=== PATIENT | male | born 1950 | race Caucasian/White ===

== ENCOUNTER 2016-12-20 08:10 | Inpatient (IN) | payer MEDICARE, BC ==
[~2016-12-20] VITALS: Ht 166.4 cm; Wt 65.0 kg
[2016-12-20] MEDS ORDERED: MULT1TAB84 PO (08:29)
[2016-12-20] MEDS ORDERED: HYDR-3516 PO (08:29)
[2016-12-20] MEDS ORDERED: STOO100C PO (08:29)
[2016-12-20] MEDS ORDERED: ASPI-110 PO (08:29)
[2016-12-20] MEDS ORDERED: TRAM50TA PO (08:29)
[2016-12-27] MEDS: SODIUM CHLORIDE 0.9% IV SCH ×2 (08:15→10:30)
[2016-12-27] MEDS: TRANEXAMIC ACID IV SCH ×2 (08:15→10:30)
[2016-12-27] MEDS: EXPAREL PERI-ARTICULAR INJECTION (TOTAL VOL. 60 ML) P-ARTICULR SCH ×4 (08:15→11:09)
[2016-12-27] MEDS ORDERED: METOPROLOL TARTRATE 25 MG TAB PO PRN (08:15)
[2016-12-27] MEDS: CHLORHEXIDINE GLUCONATE 4% SOLN 120 ML BTL TOP SCH (08:15)
[2016-12-27] MEDS: SODIUM CHLORID 0.9% 500 ML IV SCH ×2 (08:15→19:57)
[2016-12-27] MEDS ORDERED: ceFAZolin 2 GM PREMIX 50 ML IV SCH (08:15)
[2016-12-27] MEDS: LACTATED RINGER'S 1000 ML IV SCH (08:15)
[2016-12-27] MEDS ORDERED: INSULIN HUMAN REGULAR 1,000 UNITS/10 ML VIAL SQ PRN (08:15)
[2016-12-27 08:16] VITALS: BP 149/83; PULSE 78; RESP 20; TEMP 97.7; O2SAT 98
[2016-12-27] MEDS ORDERED: DEXAMETHASONE SOD PHOS 4 MG/ML VIAL ONE (09:51)
[2016-12-27] MEDS ORDERED: MIDAZOLAM HCL 2 MG/2 ML VIAL ONE (09:51)
[2016-12-27] MEDS ORDERED: FAMOTIDINE 20 MG/2 ML VIAL ONE (09:51)
[2016-12-27] MEDS ORDERED: GENTAMICIN SULFATE 80 MG/2 ML VIAL ONE (09:55)
[2016-12-27] MEDS ORDERED: ACETAMINOPHEN 1000 MG/100 ML VIAL IV ONE (09:56)
[2016-12-27] MEDS ORDERED: fentaNYL CITRATE 250 MCG/5 ML AMP ONE (09:56)
[2016-12-27] MEDS ORDERED: BISACODYL 10 MG SUPP PR PRN (10:15)
[2016-12-27] MEDS ORDERED: Post-op Orders (for Pharmacy) MISC XX ONE (10:15)
[2016-12-27] MEDS ORDERED: ONDANSETRON HCL 4 MG/2 ML VIAL IVP PRN (10:15)
[2016-12-27] MEDS ORDERED: ZOLPIDEM TARTRATE 5 MG TAB PO PRN (10:15)
[2016-12-27] MEDS ORDERED: TRANEXAMIC ACID INJ 0 MG in SODIUM CHLORIDE 0.9% INJ 100 ML IV SCH (10:15)
[2016-12-27] MEDS ORDERED: SODIUM CHLORIDE 0.9% FLUSH 5 ML FLUSH IVF PRN (10:15)
[2016-12-27] MEDS ORDERED: MAGNESIUM HYDROXIDE SUSP 30 ML CUP PO PRN (10:15)
[2016-12-27] MEDS ORDERED: MORPHINE SULFATE 8 MG/ML INJ IV PUSH PRN (10:15)
[2016-12-27] MEDS ORDERED: SODIUM CHLORIDE 0.9% IV SCH (11:15)
[2016-12-27] MEDS ORDERED: TRANEXAMIC ACID IV SCH (11:15)
[2016-12-27] MEDS ORDERED: NEOSTIGMINE 3 MG/3 ML SYR IV ONE (12:00)
[2016-12-27] MEDS ORDERED: ePHEDrine/NS 25 MG/5 ML SYR IV ONE (12:00)
[2016-12-27] MEDS ORDERED: PHENYLEPH/NS 1000 MCG/10 ML SYR IV ONE (12:00)
[2016-12-27] MEDS ORDERED: PROPOFOL 200 MG/20 ML AMP IV ONE (12:00)
[2016-12-27] MEDS ORDERED: ONDANSETRON HCL 4 MG/2 ML VIAL IV PUSH ONE (12:00)
[2016-12-27] MEDS: ASPIRIN EC 81 MG TABEC PO SCH ×2 (12:00→19:47)
[2016-12-27] MEDS ORDERED: LACTATED RINGER'S 1000 ML INJ 1,000 ML IV ONE (12:00)
[2016-12-27] MEDS ORDERED: DO NOT ADM ANY ANTICOAGULANT DRUGS XX PRN (13:00)
[2016-12-27] MEDS: LACTATED RINGER'S 1000 ML INJ 1,000 ML IV SCH ×2 (13:00→19:56)
[2016-12-27] MEDS ORDERED: MORPHINE SULFATE 4 MG/ML INJ ONE (13:10)
--- NOTE | 2016-12-27 13:27 | MP ---
cc: Ting HART. DATE OF SURGERY 12/27/2016 PREOPERATIVE DIAGNOSIS Primary osteoarthritis right hip. POSTOPERATIVE DIAGNOSIS Primary osteoarthritis right hip. OPERATIVE PROCEDURE Right total hip arthroplasty with Rosalia prosthesis. SURGEON Shanae Hart MD UPHOLSTERY INSTRUCTOR RAJAT Carlin ANESTHESIA Spinal with supplemental general and local. INDICATIONS AND FINDINGS This 66-year-old man has had progressive worsening of pain in his right hip over the past year. This has worsened to the point that he can only walk about 1/2-mile on a good day because of his pain. He has had stiffness and pain on motion. He has especially pain on adduction. He has not responded to conservative measures including nonsteroidal anti-inflammatory agents, activity modification, analgesics, ambulatory aids and exercises. Physical findings shows limited range of motion in the right hip with tenderness in the hip on motion. Héctor's was positive. X-rays showed significant arthritis with loss of articular cartilage deep within the acetabulum, large osteophytes on the posterior and lateral aspect of the hip and osteophytes throughout. There are some small subchondral cysts. Operative findings showed significant changes in the hip with worse arthritis than seen on the x-rays with loss of articular cartilage in the upper part of the femoral head with irregularity in the acetabulum with loss of articular cartilage. In addition, there were osteophytes on both. PROSTHESIS USED Rosalia prosthesis with the acetabulum being a Tritanium Hemispherical Cluster Cup size 52 mm with two cancellous screws and a Trident X3 polyethylene insert, 32-mm inner diameter and 0 degrees. The femoral component was an Accolade II, size 5 x 132-degrees. Biolox Delta ceramic head, size 32 x +0 neck length. PROCEDURE The patient was brought to the clean-air operating suite and a spinal anesthetic administered. Because this was not entirely effective at the time, a general anesthetic was administered as well. He was placed into a lateral position on a [employer] lateral positioner. This was appropriately padded. He had an axillary roll under the left shoulder. He was then prepped with alcohol, Hibiclens and ChloraPrep and draped in the usual manner with the hip draped free. He received prophylactic antibiotics in the form of Ancef as well as tranexamic acid preoperatively according to protocol. An appropriate time-out procedure was carried out. Local anesthesia was administered into the incision site. A posterolateral incision was them made extending approximately 10 cm over the posterolateral aspect of the hip, centered over the tip of the greater trochanter. The incision was deepened through the subcutaneous tissues to the fascia micah and gluteus fascia which were incised in line with the fibers and the skin incision. A Charnley retractor was inserted with appropriate wound towels. The hip was internally rotated. The external rotators were released off the posterior aspect of the greater trochanter. A capsulotomy was carried out with posteriorly based flap reflecting the capsule off the joint. The hip was dislocated. The femoral neck was transected at the appropriate level with the oscillating saw. Femoral preparation was initiated with a box osteotome and rongeur followed by a canal-finding curet. The reaming of the femur was initiated with a size 0 broach and progressively went in one size increments up to size 5. At size 5 this seated appropriately. Calcar planing was carried out. The hip was then repositioned. Retractors were placed about the acetabulum. The soft tissues were cleaned from the acetabulum. Reaming was initiated starting with a 46-mm reamer and going in 1-mm increments up to size 51. At 51, an attempt at placement of the 52-mm trial prosthesis was unsuccessful, therefore the reaming went 52 mm. The trial prosthesis seated appropriately. When this was removed, the actual prosthesis which was a Tritanium Cluster Shell was impacted into place and seated appropriately. Secondary impaction was carried out with no change in position of the further impaction. Two of the dome holes were drilled and appropriate size screws were inserted. The liner was inserted. This was a 0-degree, 32-mm inner diameter liner. When this was inserted and seated, attention was directed to the femur again. A trial neck with a 32-mm trial heat and 0 neck length was positioned in place. With this reduced, there was excellent stability. There was excellent motion. There was no pistoning. The leg lengths appeared to be appropriate. The hip was dislocated. The femoral trial was removed. Local anesthesia was administered throughout the hip with Exparel. The medullary canal was irrigated. The femoral component was impacted into place and seated appropriately. A trial reduction was again carried out with the trial prosthesis with the same result. This trial prosthesis was removed. The trunnion was cleaned and dried. The Biolox Delta Ceramic Head was the positioned in place and impacted into position. When this seated appropriately, the hip was reduced. The hip was taken through a range of motion again. Stability was excellent. Range of motion was excellent. The leg lengths appeared appropriate. There was no pistoning. Capsular closure and external rotator reattachment was carried out with #1 Vicryl interrupted Phillip-Surjit sutures that were transosseous. After this closure, the sciatic nerve was again inspected and found to be in good condition. The fascia micah and gluteus fascia were repaired with #1 Vicryl interrupted [id number] sutures. The subcutaneous tissues were closed with 2-0 Vicryl interrupted simple sutures with buried knots. The skin was closed with continuous subcuticular closure of 4-0 Monocryl. The wounds were dressed with Steri-Strips, followed by dry dressing, sterile ABD and Medipore compression dressing. The leg was placed into a knee immobilizer. The patient was transferred to the recovery room in satisfactory condition having tolerated the procedure well. COUNTS Correct. SPECIMEN None. ESTIMATED BLOOD LOSS Less than 200 mL. MD MARGARITA Ward/KELECHI /12:46 PM /1:02 PM
--- NOTE | 2016-12-27 14:48 | RADRPT ---
EXAM DATE/TIME: 12/27/2016 13:40 [facility] COMPARISON: No previous studies available for comparison. INDICATIONS : Post-op total right hip arthroplasty. MEDICAL HISTORY : None. SURGICAL HISTORY : Inguinal hernia repair. ENCOUNTER: Initial ACUITY: 1 day PAIN SCORE: 0/10 LOCATION: Right hip. FINDINGS: The patient is status post a total hip arthroplasty with a bipolar prosthesis. Prosthesis is well-sea epi. Alignment is anatomic. A fracture is not appreciated. CONCLUSION: Anatomic alignment. Stephane De Jesus MD FACR Board Certified Radiologist. This report was verified electronically.
[2016-12-27 16:30] VITALS: BP 116/65; PULSE 101; RESP 16; TEMP 95.4; O2SAT 100
[2016-12-27 19:50] VITALS: BP 118/70; PULSE 107; RESP 18; TEMP 96.7; O2SAT 100
[2016-12-27] MEDS: oxyCODONE/ACETAMINOPHEN 5 MG/325 MG TAB PO PRN ×2 (19:55→23:51)
[2016-12-27] MEDS: SENNOSIDES 8.6 MG TAB PO SCH (19:56)
[2016-12-27] MEDS: MAGNESIUM HYDROXIDE SUSP 30 ML CUP PO SCH (19:56)
[2016-12-27] MEDS: SODIUM CHLORIDE 0.9% FLUSH 5 ML FLUSH IVF SCH (19:56)
[2016-12-27 23:50] VITALS: BP 112/69; PULSE 107; RESP 18; TEMP 96.7; O2SAT 100
[2016-12-28 03:50] VITALS: BP 120/68; PULSE 93; RESP 17; TEMP 97.5; O2SAT 98
[2016-12-28 06:03] LABS: MEAN CELL VOLUME 91.5 FL (80.0-100.0); MEAN CORPUSCULAR HEMOGLOBIN 31.6 PG (27.0-34.0); MEAN CORPUSCULAR HGB CONC 34.5 % (32.0-36.0); PLATELET COUNT 203 TH/MM3 (150-450); RED CELL DISTRIBUTION WIDTH 12.9 % (11.6-17.2); REVIEW FLAG FINAL
--- NOTE | 2016-12-28 06:16 | PD.ORT.PN ---
Subjective Post Op Day #: 1 Subjective Remarks He had some pain last night. He is better now. Distance Walked 50 feet. Objective Vitals Vital Signs Date Time Temp Pulse Resp B/P Pulse Ox O2 Delivery O2 Flow Rate FiO2 12/28/16 03:50 97.5 93 17 120/68 98 12/27/16 23:50 96.7 107 18 112/69 100 12/27/16 19:50 96.7 107 18 118/70 100 12/27/16 16:30 95.4 101 16 116/65 100 12/27/16 15:00 90 16 125/83 98 Nasal Cannula 2 12/27/16 14:30 84 16 142/84 99 Nasal Cannula 2 12/27/16 14:00 90 16 150/91 98 Nasal Cannula 2 12/27/16 13:45 82 16 138/84 98 Nasal Cannula 2 12/27/16 13:30 78 16 148/87 99 Nasal Cannula 2 12/27/16 13:15 78 16 137/85 99 Nasal Cannula 2 12/27/16 13:00 96.3 88 16 145/82 99 Nasal Cannula 2 12/27/16 08:16 97.7 78 20 149/83 98 I/O 12/27/16 12/27/16 12/27/16 12/28/16 12/28/16 12/28/16 07:00 15:00 23:00 07:00 15:00 23:00 Intake Total 100 ml 480 ml 240 ml Output Total 350 ml 200 ml 675 ml Balance -250 ml 280 ml -435 ml Intake Oral 480 ml 240 ml IV Total 100 ml Output Urine Total 350 ml 200 ml 675 ml # Bowel Movements 0 0 Result Diagram: 12/28/16 0514 Imaging Last 24 hours Impressions Hip X-Ray 12/27/16 1012 Signed Impressions: Service Date/Time: Tuesday, December 27, 2016 13:40 - CONCLUSION: Anatomic alignment. Stephane De Jesus MD Objective Remarks He is resting comfortably, supine in bed. The dressing is dry and intact. The neurovascular status is intact. Assessment & Plan Ortho Post Op Day #: 1 Problem List: (1) Status post total hip replacement, right Plan: Continue postop care and PT. Assessment and Plan Orthopaedically stable. Condition: Good. DVT prophylaxis: CARLOS stockings, sequentials, ASA. Discharge plans: Home with HHC. Has appointment. Usama Red MD (Charles) Dec 28, 2016 06:16
--- NOTE | 2016-12-28 06:18 | HHI.FF ---
Face to Face Verification Diagnosis: (1) Status post total hip replacement, right Physical Therapy Gait training Hip: Total hip, Protocol: Right, Posterior hip precautions, Progress to weight bearing Canvas Knee Splint: When in bed & 2 pillows btw thighs Right LE Weight Bearing: WB as tolerated Right LE Range of Motion: Active ROM Nursing Nursing: Dressing changes Dressing Changes: Daily dressing change, Coverderm/Primapore Additional Instructions Remove steristrips on postop day 14. I have seen patient Noah John on 12/28/16. My clinical findings support the need for the requested home health care services because: Ltd mobility - disease progression Limited ability to care for self High risk of falls I certify that my clinical findings support that this patient is homebound because: Post-op weakness Unsteady gait/balance Unsafe to leave home unassisted Usama Red MD (Charles) Dec 28, 2016 06:18
[2016-12-28 06:26] LABS: POTASSIUM 3.9 MEQ/L (3.5-5.1)
[2016-12-28] MEDS ORDERED: OXYC1TAB63 PO (06:39)
[2016-12-28 08:00] VITALS: BP 139/78; PULSE 93; RESP 18; TEMP 97.5; O2SAT 100
[2016-12-28] MEDS: MULTIVITAMINS/MINERALS THERAPEUTIC TAB PO SCH (08:08)
[2016-12-28] MEDS: oxyCODONE/ACETAMINOPHEN 5 MG/325 MG TAB PO PRN ×4 (08:09→21:21)
[2016-12-28] MEDS: MAGNESIUM HYDROXIDE SUSP 30 ML CUP PO SCH ×2 (08:09→20:44)
[2016-12-28] MEDS: SODIUM CHLORIDE 0.9% FLUSH 5 ML FLUSH IVF SCH ×2 (08:09→20:45)
[2016-12-28] MEDS: CHLORHEXIDINE GLUCONATE 4% SOLN 120 ML BTL TOP SCH (08:10)
[2016-12-28] MEDS: LACTATED RINGER'S 1000 ML IV SCH (08:10)
--- NOTE | 2016-12-28 08:20 | MB ---
cc: PHU DAY DATE OF CONSULTATION: 12/27/2016 DATE OF : 1950 REASON FOR CONSULTATION Medical management. The patient is status post right total hip arthroplasty. HISTORY OF PRESENT ILLNESS This is a pleasant 66-year-old white male who has been struggling with osteoarthritis in his right hip approximately a year. He has increasingly had more pain and became functionally disabling with his ADLs. The patient was followed for outpatient therapy but due to his lack of tolerance with ambulation and exercise he felt surgery was the best option. The patient has been treated previously with nonsteroidal anti-inflammatory agents. He has modified his exercise. He has attempted some mild weight loss but still had no relief from his daily hip pain. Currently the patient has comorbidities that we will manage during his postop phase. PAST MEDICAL HISTORY Previous medical history includes: 1. Fracture of left ankle. 2. Restless leg syndrome which he describes as moderate to severe. 3. Hemorrhoids. 4. Occasional reflux or GERD. PAST SURGICAL HISTORY 1. Current right hip arthroplasty. 2. Fractured ankle repair. ALLERGIES AVOCADOS, CAT DANDER. MEDICATION 1. Meloxicam up until approximately a week ago. 2. Multivitamin. 3. Tramadol. 4. Colace. 5. Celecoxib. 6. Baby aspirin. SOCIAL HISTORY The patient is , currently lives at home with his . He is retired general education professor. He was a former smoker in his much younger years. Occasional alcohol approximately one time a week. He does have a grown son. No illicit drug use. FAMILY HISTORY Heart disease, stroke and cancer. REVIEW OF SYSTEMS A 12-point review was obtained. Currently has some generalized weakness but otherwise all systems are negative. The patient denies cough, denies shortness of breath. Denies chest pain. Denies headache. PHYSICAL EXAMINATION VITAL SIGNS: Temperature is 96.3, pulse 88, respirations 16, blood pressure 145/82 and 150/91, has been as low as 138/84. GENERAL: Well-nourished white male, looks to be his stated age, resting in a stretcher. He is semi-alert and conversational to verbal stimuli. HEENT: Atraumatic, normocephalic. PERRLA at 2. Holiday mucous membranes. No scleral icterus. NECK: Neck is supple. Trachea is midline. CARDIOVASCULAR: Soft systolic murmur, grade 2/6 at the left sternal border. No rubs or gallops. No edema. Pulses are intact. PULMONARY: Lungs are clear anteriorly and posteriorly. No wheezes, rales or rhonchi. He is using no accessory muscles to breathe. ABDOMEN: Soft, round, nontender, nondistended. Active bowel sounds. MUSCULOSKELETAL: He has equal hand principal trainer, can move his extremities with purpose. He does have some guarding to the right hip and leg but he is status post total hip arthroplasty and still in the PACU. SKIN: Warm and dry. NEUROLOGIC: Neurologically he is semi-alert, conversational. Cranial nerves intact. DIAGNOSTIC DATA Labs were done on 12/20/2016. No abnormals except for RBC count 4.45, hemoglobin of 14.2, WBC count 6.6. Chemistry done on that same date shows a BUN of 22, creatinine 1.01, sodium 141, potassium 4.2. Fasting glucose 81. His urine is yellow, clear, 5.0 pH, specific gravity 1.017, negative for glucose, proteins, ketones, occult blood, nitrites and bilirubin, UA culture was not indicated. IMAGING STUDIES Imaging studies show a follow-up right hip x-ray exam with good anatomic alignment. ASSESSMENT AND PLAN The patient is status post right total hip arthroplasty, osteoarthritis, restless legs syndrome, social ETOH use, Hemorrhoids. Our plan is to monitor labs. I have ordered CBC and BMP for in the morning. We will monitor vital signs. Currently the patient is afebrile, blood pressure is stable but running at a high normal range, we will monitor that. Ortho will manage pain and any orthopedic needs related to his surgery. His vital signs will be q. 4, regular diet, SCDs. Meds will be reconciled if any of them are needed. DVT prophylaxis with aspirin. Bowel regimen with Colace and a laxative is needed p.r.n., multivitamins. We will follow for any medical needs. Thank you very much. Dictated by: ERIC Nation Phu Day MD JP/SHAHID /3:21 PM /8:20 AM PT SEEN AND EXAMINED ON DAY OF ADMISSION WITH RN AT BEDSIDE CHART WAS REVIEWED PLAN OF CARE CURTIS ACEVEDO PT AND FAMILY MEMBER AT BEDSIDE CURTIS RN SEE ORDERS MTDD
[2016-12-28 11:59] VITALS: BP 101/66; PULSE 86; RESP 18; TEMP 96.2; O2SAT 99
[2016-12-28] MEDS: LACTATED RINGER'S 1000 ML INJ 1,000 ML IV SCH ×2 (11:59→20:46)
[2016-12-28] MEDS: ASPIRIN EC 81 MG TABEC PO SCH ×2 (11:59→23:58)
--- NOTE | 2016-12-28 13:26 | HHI.PR ---
Subjective Remarks up in chair alert, dysuria sensation, improving today in room. no SOB (Coretta Ordoñez) Objective Objective Results - Vital Signs Date Time Temp Pulse Resp B/P Pulse Ox O2 Delivery O2 Flow Rate FiO2 12/28/16 11:59 96.2 86 18 101/66 99 12/28/16 09:20 16 12/28/16 08:00 97.5 93 18 139/78 100 12/28/16 03:50 97.5 93 17 120/68 98 12/27/16 23:50 96.7 107 18 112/69 100 12/27/16 19:50 96.7 107 18 118/70 100 12/27/16 16:30 95.4 101 16 116/65 100 12/27/16 15:00 90 16 125/83 98 Nasal Cannula 2 12/27/16 14:30 84 16 142/84 99 Nasal Cannula 2 12/27/16 14:00 90 16 150/91 98 Nasal Cannula 2 12/27/16 13:45 82 16 138/84 98 Nasal Cannula 2 12/27/16 13:30 78 16 148/87 99 Nasal Cannula 2 I/O 12/27/16 12/27/16 12/27/16 12/28/16 12/28/16 12/28/16 07:00 15:00 23:00 07:00 15:00 23:00 Intake Total 100 ml 480 ml 240 ml Output Total 350 ml 200 ml 675 ml Balance -250 ml 280 ml -435 ml Intake Oral 480 ml 240 ml IV Total 100 ml Output Urine Total 350 ml 200 ml 675 ml # Bowel Movements 0 0 (Coretta Ordoñez) Result Diagram: 12/28/1614 12/28/16 0514 ROS General: Weakness (mild), Other (10 Point ROS done. Mild dysuria, weakness, otherwise negative.) /AEROSPACE PROJECT ENGINEER: Dysuria (mild, improving) (Coretta Ordoñez) Physical Exam Physical Exam PHYSICAL EXAMINATION GENERAL: This is a well-developed, well-nourished male who appears to be in no acute distress. He is alert and awake, []. HEAD: Normocephalic without any lesion or mass noted. Facial features appear symmetric. OROPHARYNGEAL: Oropharynx without erythema or edema. NECK: Supple. No nuchal rigidity or lymphadenopathy. Trachea midline without deviation. CARDIAC: Regular rhythm, regular rate, S1 and S2 are heard. Murmur []; no gallops or rubs. LUNGS: Clear to auscultation bilaterally. [] wheeze, [] rhonchi or [] rale. No use of accessory muscles on inspiration or expiration. ABDOMEN: Soft, nontender, no organomegaly or masses. Bowel sounds are heard in all four quadrants. No rebound. No guarding. EXTREMITIES: [] edema. Pulses equal bilateral. [] cyanosis. NEUROLOGICAL: Patient mood and affect appropriate. No focal deficit SKIN:Warm and moist Objective Remarks Bina had a few problems with voiding. (Coretta Ordoñez) A/P Assessment and Plan The patient is status post right total hip arthroplasty, osteoarthritis, restless legs syndrome, social ETOH use, Hemorrhoids Possible UTI Our plan is to monitor labs. I have ordered CBC and BMP for in the morning. WBC 10.0 and hgb 11.4 will monitor vital signs. afebrile Currently the patient is afebrile, vital reviewed Ortho will manage pain and any orthopedic needs related to his surgery. regular diet, SCDs. Meds will be reconciled DVT prophylaxis with aspirin. Bowel regimen with Colace and a laxative is needed p.r.n., MOM given, BM X 3 . multivitamins. follow for any medical needs. Mild frequentcy sensation with voiding. Obtain U/A, R/O UTI Discussed With: Family (pt. and ), Other (Dr. Coon, pt. seen on her behalf ) (Coretta Ordoñez) Assessment and Plan Patient seen and examined pain controlled complaining of increased urinary frequency, no fever, burning etc will send UA OOB to chair eafrancoier discussed with Dr Red, continue with Baby ASA, TEDs for DVT prophylaxis. Both patient and DR Red prefer not to start anticoag, given low risk. discussed with patient /family at bed side discussed with Coretta REYES (Lissett Coon MD) Coretta Ordoñez Dec 28, 2016 13:26 Lissett Coon MD Dec 28, 2016 13:50
[2016-12-28 15:45] LABS: BLOOD, URINE NEG (NEG); GLUCOSE,URINE NEG (NEG); KETONE, URINE NEG (NEG); NITRITE,URINE NEG (NEG); PH, URINE 5.5 (5.0-8.5); URINE COLOR YELLOW (YELLW/STRAW)
[2016-12-28 15:51] LABS: COMMENT (UR) CULT NOT INDICATED; CULTURE IF INDICATED CULT NOT INDICATED
[2016-12-28 16:17] VITALS: BP 112/69; PULSE 80; RESP 17; TEMP 98.3; O2SAT 99
[2016-12-28] MEDS ORDERED: ASPI81TA11 PO (17:32)
[2016-12-28] MEDS: DOCUSATE SODIUM 100 MG CAP PO SCH (20:45)
[2016-12-28] MEDS: SENNOSIDES 8.6 MG TAB PO SCH (20:45)
[2016-12-28 21:10] VITALS: BP 112/63; PULSE 95; RESP 17; TEMP 97.7; O2SAT 97
[2016-12-28 23:55] VITALS: BP 111/67; PULSE 92; RESP 17; TEMP 96; O2SAT 99
[2016-12-29] MEDS: oxyCODONE/ACETAMINOPHEN 5 MG/325 MG TAB PO PRN ×2 (01:38→08:05)
[2016-12-29 04:00] VITALS: BP 107/61; PULSE 85; RESP 17; TEMP 97.3; O2SAT 96
--- NOTE | 2016-12-29 06:47 | PD.ORT.PN ---
Subjective Post Op Day #: 2 Subjective Remarks He has had less pain last. He did well with PT. Distance Walked 100 feet + 115 feet twice. Objective Vitals Vital Signs Date Time Temp Pulse Resp B/P Pulse Ox O2 Delivery O2 Flow Rate FiO2 12/29/16 04:00 97.3 85 17 107/61 96 12/28/16 23:55 96.0 92 17 111/67 99 12/28/16 21:10 97.7 95 17 112/63 97 12/28/16 16:17 98.3 80 17 112/69 99 12/28/16 13:52 16 12/28/16 11:59 96.2 86 18 101/66 99 12/28/16 08:00 97.5 93 18 139/78 100 I/O 12/28/16 12/28/16 12/28/16 12/29/16 12/29/16 12/29/16 07:00 15:00 23:00 07:00 15:00 23:00 Intake Total 240 ml 1200 ml 360 ml 600 ml Output Total 675 ml 500 ml 1350 ml Balance -435 ml 1200 ml -140 ml -750 ml Intake Oral 240 ml 1200 ml 360 ml 600 ml Output Urine Total 675 ml 500 ml 1350 ml # Voids 5 # Bowel Movements 0 0 0 0 Result Diagram: 12/28/16 0514 12/28/16 0514 Imaging Last 24 hours Impressions Hip X-Ray 12/27/16 1012 Signed Impressions: Service Date/Time: Tuesday, December 27, 2016 13:40 - CONCLUSION: Anatomic alignment. Stephane De Jesus MD Objective Remarks He is resting comfortably, supine in bed. The dressing is dry and intact. The neurovascular status is intact. Assessment & Plan Problem List: (1) Status post total hip replacement, right Plan: Continue postop care and PT. Assessment and Plan Orthopaedically stable. Condition: Good. DVT prophylaxis: CARLOS stockings, sequentials, ASA. Discharge plans: Home with [facility]. Has appointment. Usama Red MD (Charles) Dec 29, 2016 06:47
[2016-12-29 08:00] VITALS: BP 93/63; PULSE 93; RESP 18; TEMP 96.5; O2SAT 93
[2016-12-29] MEDS: MAGNESIUM HYDROXIDE SUSP 30 ML CUP PO SCH (08:04)
[2016-12-29] MEDS: MULTIVITAMINS/MINERALS THERAPEUTIC TAB PO SCH (08:04)
[2016-12-29] MEDS: DOCUSATE SODIUM 100 MG CAP PO SCH (08:04)
[2016-12-29] MEDS: SODIUM CHLORIDE 0.9% FLUSH 5 ML FLUSH IVF SCH (08:05)
[2016-12-29] MEDS: CHLORHEXIDINE GLUCONATE 4% SOLN 120 ML BTL TOP SCH (08:15)
[2016-12-29] MEDS: LACTATED RINGER'S 1000 ML IV SCH (08:15)
[2016-12-29 08:29] VITALS: O2SAT 97
[2016-12-29 09:28] VITALS: RESP 16
== END 2016-12-29 11:22 | disposition home health service (06) | DRG 470 ==
LOC: HSDI 12-27 07:32 → N06A 12-27 15:28
PROVIDERS: ADMIT Orthopaedic Surgery; ATTEND Orthopaedic Surgery
PROC: 0SR904A Replacement of Right Hip Joint with Ceramic on Polyethylene Synthetic Substitute, Uncemented, Open Approach (ICD-10-PCS; principal; 2016-12-27 10:11)
DX: M16.11 Unilateral primary osteoarthritis, right hip (principal); G25.81 Restless legs syndrome; K21.9 Gastro-esophageal reflux disease without esophagitis; K64.9 Unspecified hemorrhoids; R30.0 Dysuria; Z87.891 Personal history of nicotine dependence
CPT/HCPCS: 73502; 80048; 81001; 85027; 86850; 86900; 86901; 94150; C1776; C9290; J0131; J0690; J1100; J1580; J2250; J2270; J2370; J2405; J2710; J3010; J7120; L1830

== ENCOUNTER → 2016-12-20 | Outpatient (CLI) | payer MEDICARE, BC ==
[~2016-12-20] MED LIST: ASPI-110 PO; ASPI81TA11 PO; ASPI81TA45 PO; HYDR-3516 PO; MULT1TAB84 PO; OXYC1TAB63 PO; STOO100C PO; STOO100T PO; TAB-TAB PO; TRAM50TA PO
[2016-12-20 10:05] LABS: HEMATOCRIT 41.4 % (39.0-51.0); MEAN CORPUSCULAR HEMOGLOBIN 31.8 PG (27.0-34.0); MEAN CORPUSCULAR HGB CONC 34.2 % (32.0-36.0); PLATELET COUNT 207 TH/MM3 (150-450); RED BLOOD COUNT 4.45 MIL/MM3 (4.50-5.90); RED CELL DISTRIBUTION WIDTH 12.8 % (11.6-17.2); REVIEW FLAG FINAL; WHITE BLOOD COUNT 6.6 TH/MM3 (4.0-11.0)
[2016-12-20 10:08] LABS: APTT (PATIENT) 25.8 SEC (24.3-30.1); INTERNATIONAL NORMALIZED RATIO 0.9 RATIO; PROTHROMBIN TIME - PATIENT 10.4 SEC (9.8-11.6)
[2016-12-20 10:17] LABS: BLOOD, URINE NEG (NEG); COMMENT (UR) CULT NOT INDICATED; CULTURE IF INDICATED CULT NOT INDICATED; GLUCOSE,URINE NEG (NEG); KETONE, URINE NEG (NEG); MUCUS URINE FEW /lpf (OCC); NITRITE,URINE NEG (NEG); URINE COLOR YELLOW (YELLW/STRAW)
[2016-12-20 10:35] LABS: BICARBONATE 31.5 MEQ/L (21.0-32.0); POTASSIUM 4.2 MEQ/L (3.5-5.1)
== END ==
LOC: CPRE 08:05
PROVIDERS: ATTEND Orthopaedic Surgery
DX: Z01.812 Encounter for preprocedural laboratory examination (principal); M16.11 Unilateral primary osteoarthritis, right hip; M79.609 Pain in unspecified limb
CPT/HCPCS: 36415; 80048; 81001; 85027; 85610; 85730

== ENCOUNTER 2019-01-01 05:22 | Inpatient (IN) ==
[2019-01-01] MEDS ORDERED: Metoprolol Tartrate 25 MG Tablet PO ONE (06:09)
[2019-01-01] MEDS ORDERED: Chlorhexidine Gluconate 2% 1 Pack (2 Cloths) TOPICAL ONE (06:09)
[2019-01-01] MEDS ORDERED: Sodium Chlor 0.9% Inj 40 ML, Bupivacaine Liposo PF 1.3% Inj 20 ML P-ARTICULR SCH ×2 (06:14)
[2019-01-01] MEDS ORDERED: Chlorhexidine 4% Topical 120 APPLIC/120 ML Bottle TOPICAL SCH (06:15)
[2019-01-01] MEDS ORDERED: Propofol Inj 500 MG/50 ML Vial ONE (06:17)
[2019-01-01] MEDS ORDERED: Famotidine PF Inj 20 MG/2 ML Vial ONE (06:17)
[2019-01-01] MEDS ORDERED: Lidocaine PF 1% Inj 5 ML Syringe OTHER ONE (06:38)
[2019-01-01] MEDS ORDERED: Esmolol Bolus Inj 100 MG/10 ML Vial IV.PUSH ONE (06:38)
[2019-01-01] MEDS ORDERED: Phenylephrine/NS 1000 MCG/10ML Syringe IV.PUSH ONE (06:38)
[2019-01-01] MEDS ORDERED: Aluminum/Magnesium/Simethacone Susp 30 ML UDC PO PRN (06:38)
[2019-01-01] MEDS ORDERED: Morphine Inj 4 MG/ML Vial IV.PUSH PRN (06:38)
[2019-01-01] MEDS ORDERED: Zolpidem Tartrate 5 MG Tablet PO PRN (06:38)
[2019-01-01] MEDS ORDERED: Tranexamic Acid Inj 0 MG in Sodium Chlor 0.9% Inj 100 ML IV.SIG ONE (06:38)
[2019-01-01] MEDS ORDERED: Post-op Orders (for Pharmacy) OTHER STA (06:38)
[2019-01-01] MEDS ORDERED: Glycopyrrolate Inj 1 MG/5 ML Syringe IV.PUSH ONE (06:38)
[2019-01-01] MEDS ORDERED: Bisacodyl 10 MG Supp RECTAL PRN (06:38)
[2019-01-01] MEDS ORDERED: Acetaminophen 325 MG Tablet PO PRN (06:38)
[2019-01-01] MEDS ORDERED: Ketamine Inj 50 MG/5 ML Syringe IV.PUSH ONE ×2 (06:39→07:11)
--- NOTE | 2019-01-01 06:42 | P.DCO ---
- Physical Therapy Hip: Total hip, Protocol: Left, Posterior hip precautions, Progress to weight bearing Canvas Knee Splint: When in bed with 2 pillows between thighs Left Lower Extremity Weight Bearing: Weight bearing as tolerated Left Lower Extremity Range of Motion: Active ROM - Nursing Nursing: Dressing changes (Do not remove Dermabond Prineo (the tape that is directly on the wound).Leave the Optifoam dressing in place for 7 days. After this, daily dressing changes will be done taking care to avoid injuring or removing the Dermabond Prineo.) Additional instructions: Do not remove Dermabond Prineo (the tape that is directly on the wound). Leave the Optifoam dressing in place for 7 days. After this, daily dressing changes will be done taking care to avoid injuring or removing the Dermabond Prineo. - Case Management Consult Case Management Consult-Home Health: Yes - Certification Need for Home Health services: I have seen patient Noah John on 01/01/19. My clinical findings support the need for the requested home health care services because: Need for Home Health Services: Limited ability to care for self, High risk of falls Homebound Certification: I certify that my clinical findings support that this patient is homebound because: Homebound Certification: Post-op weakness, Unsteady gait/balance, Unsafe to leave home unassisted
[2019-01-01] MEDS ORDERED: ceFAZolin 2 GM Premix Inj 2 GM/50 ML PIGGYBACK IV.SIG SCH (07:00)
[2019-01-01] MEDS ORDERED: SODIUM CHLOR 0.9% IV.SIG SCH ×2 (07:00→09:07)
[2019-01-01] MEDS ORDERED: TRANEXAMIC ACID IV.SIG SCH ×2 (07:00→09:07)
[2019-01-01] MEDS ORDERED: Sodium Chlor 0.9% Inj 500 ML IV.SIG SCH (07:00)
[2019-01-01] MEDS ORDERED: fentaNYL Citrate Inj 100 MCG/2 ML Ampul ONE (07:11)
--- NOTE | 2019-01-01 09:06 | P.OP ---
- Preoperative Diagnosis (1) Primary osteoarthritis of left hip - Postoperative Diagnosis (1) Primary osteoarthritis of left hip Date of procedure: 01/01/19 Procedure: Left total hip arthroplasty using Blevins prosthesis. Anesthesia: local, spinal Surgeon: Tristan Red MD Drawing In Machine Tender Helper: RAJAT Baez Estimated blood loss (mL): 200 Pathology: none sent Operation and Findings: Indications and Findings: This 68-year-old man has had long-standing arthritis in his left hip nonresponsive to conservative measures including anti- inflammatory agents, analgesics, activity modification, ambulatory aids. This has interfered with his activities of daily living and his general function. His ambulation tolerance is 1/2 mile maximum. He has left groin and thigh pain , difficulty standing and pain on any type of abduction. Physical findings showed limited range of motion in the left hip with tenderness on motion. There is crepitation on motion. He has an antalgic gait. X-rays show severe osteoarthritis with loss of articular cartilage to [id number], femoral head and acetabular osteophytes. 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 Operative findings: There was severe osteoarthritis in the left hip with loss of articular cartilage to [id number], femoral and acetabular osteophytes, subchondral cysts and prominence laterally on the femoral neck consistent with femoral acetabular impingement. Implants: The acetabular component was a 52 mm Trident II cluster shell with a 36 mm inner diameter, 0 degree lip, X3 polyethylene liner. The femoral component was an Accolade II size 6 x 132 degrees. The femoral head was a Biolox Delta ceramic size 36 mm outer diameter, -5 mm offset. The patient was brought to the clean air operating suite and a spinal anesthetic was administered with the addition of a light general anesthetic. The patient was positioned into a lateral position with the operative hip up on a [employer] lateral positioner. The hip and lower extremity were prepped with alcohol, Hibiclens and ChloraPrep and draped in the usual manner with the hip draped free. Patient received prophylactic antibiotics preoperatively. The patient also received tranexamic acid preoperatively. An appropriate timeout procedure was carried out. An incision was made from the midportion of the greater trochanter proximally and posteriorly paralleling the fibers of the gluteus lise. The incision was deepened through subcutaneous tissues down to the fascia micah and gluteus fascia. The gluteus fascia was then split longitudinally in line with its fibers up to the upper portion of the fascia micah. With wound towels in place, the Charnley retractor was inserted. The sciatic nerve was identified and protected throughout the procedure. Dissection was then carried down to the interval between the gluteus minimus and the piriformis. A retractor was inserted. The piriformis and obturator conjoined tendon was released from the greater trochanter and reflected off the capsule. A capsulotomy was made longitudinally along the femoral neck to the base of the femoral neck and then curved distally along the posterior aspect of the greater trochanter. The hip was internally rotated. Further release of the external rotators was carried out exposing the hip. The hip was dislocated. The femoral neck was transected at the appropriate level using the oscillating saw placement of appropriate retractors. The femoral head was removed. Preparation of the femur was initiated with a box osteotome followed by a curet to identify the medullary canal. Broaching was then initiated with the size 0 broach and went in 1 size increments up to size 6. The broach handle was removed. The femoral neck was then trimmed with a calcar planar. Attention was then directed to the acetabulum. Soft tissues were debrided from the acetabulum. Retractors were placed about the acetabulum. Reaming was then initiated with the 47 millimeter reamer and went in 1-2 mm increments up to the 52 millimeter diameter reamer. A trial reduction with the 52 millimeter trial prosthesis was carried out. When this was deemed to be appropriate, the trial prosthesis was removed. The acetabulum was irrigated and cleaned. The actual prosthesis as noted above was impacted into place and seated appropriately. Drill holes were made and sounded. Appropriate sized screws were inserted to stabilize the acetabulum further. The liner as noted above was inserted into the acetabular shell and impacted into place. Osteophytes were trimmed from the acetabulum. Local anesthetic was administered throughout the area of the acetabulum and anterior aspect of the femur. The trial neck was placed on the broach for the above-noted prosthesis. The femoral head trial was placed onto the femoral neck . A trial reduction was carried out. Adjustment was made as needed. The stability, leg length and motion were excellent. There was no pistoning. The trial prosthesis was removed. The broach was removed. The femoral component was impacted into the medullary canal of the femur after irrigation and suctioning. When this was appropriately seated a trial reduction was again carried out with the trial prosthesis. There was no pistoning. The leg length was appropriate. The stability and motion were excellent. The trial prosthesis was then removed. After cleaning and drying the trunion of the femoral component, the above-noted femoral head was impacted onto the trunnion. The hip was reduced. The stability and mobility were again checked along with leg lengths as noted above. The hip was positioned appropriately and closure commenced after the remainder of the local anesthetic was injected throughout the hip. The external rotators and capsule were repaired with #1 Vicryl interrupted transosseous sutures with a Krakw technique to reattach the external rotators and capsule to the posterior aspect of the greater trochanter. The capsule itself on the superior aspect was closed with #1 Vicryl interrupted [id number] sutures. The sciatic nerve was inspected. The fascia micah and gluteus fascia were repaired with #1 Vicryl interrupted [id number] sutures along with a barbed suture. The subcutaneous tissues were closed with 2-0 Vicryl interrupted simple sutures with buried knots. The skin was closed with a continuous subcuticular closure of 4-0 Monocryl. The wound was then approximated with Dermabond Prineo. A silver impregnated dressing was applied to the hip. A knee immobilizer was applied to the leg. The patient was transferred from the operating room to the recovery room in satisfactory condition having tolerated the procedure well. Counts are correct. Specimens: None. Estimated blood loss: 200 mL
[2019-01-01] MEDS ORDERED: *Meperidine Inj 25 MG/ML Vial PERIprocedural Use ONLY ONE (09:38)
[2019-01-01] MEDS ORDERED: *morphine SULFATE 4 MG/ML PERIprocedure ONLY ONE (09:38)
[2019-01-01] MEDS: Docusate Sodium 100 MG Capsule PO SCH (10:08)
[2019-01-01] MEDS: Ketorolac Inj 30 MG/ML (IVP) Vial IV.PUSH SCH ×3 (10:13→21:49)
--- NOTE | 2019-01-01 10:16 | XR ---
EXAM DATE: 01/01/2019 10:10 AM EST AGE/SEX: 68 years / Male INDICATIONS: Post-op left hip. CLINICAL DATA: This is the patient's initial encounter. Patient reports that signs and symptoms have been present for 1 day and indicates a pain score of Nonresponsive. MEDICAL/SURGICAL HISTORY: Non-responsive. Non-responsive. COMPARISON: C, HIP RIGHT (AP&LAT 2/3VWS) WO AP PELVIS, 12/27/2016. . FINDINGS: There are bilateral total hip prosthesis in place. These appear well placed. The acetabular component s are secured by 6 screws into the ileum. 2 screws are seen in the right and one screw seen on the le ft. The prosthetic components appear well placed. An acute fracture is not seen. There appears to be a hernia mesh over the left inguinal region. There is a small amount of air seen in the soft tissues over the left hip from the prior procedure. CONCLUSION: The bilateral total hip prostheses appear well placed. Electronically signed by: Herman Frye MD Board Certified Radiologist 01/01/2019 10:14 AM EST
[2019-01-01] MEDS ORDERED: ceFAZolin Inj 1 GM Vial (Addvantage) IV.SIG ONE (14:30)
[2019-01-01] MEDS ORDERED: Sodium Chlor 0.9% Inj 100 ML ONE (14:30)
--- NOTE | 2019-01-01 14:54 | P.CONIM ---
History of Present Illness Service: [facility] Consult date: 01/01/19 Reason for Consult: Medical mgt Primary Care Provider: Masood Juan MD Chief Complaint: hip pain History of Present Illness: This is a 68 years old male with past medical history of osteoarthritis, irregular heart rate, GERD, restless leg syndrome, hemorrhoids with long history of osteoarthritis of the left hip who failed conservative treatment and came in for elective surgery for left total hip arthroplasty with Dr. Red. Medicine team was consulted for medical management. Pt seen and examined ,s russell in PACU post op Hip, waiting for a bed. Patient denies any pain at this time, stated had walked with the Physical therapy and did well. Pt denies any heart or lung issues except the irregular heart beat from the ECG which he was cleared by his cement truck driver. Patient denies any Chest pain or SOB at this time. Denies any headache or dizziness, abdominal pain, nausea or vomiting. Stated had a bowel movement yesterday. Pt denies any fever or chills. Review of Systems Review of Systems: all other systems reviewed are negative [facility] Medical History Medical History Arthritis (Acute) Irregular heart rhythm (Acute) Presence of orthopedic joint implant (Acute) Restless leg syndrome (Acute) Surgical History Surgical History History of hernia surgery (Acute) History of total right hip replacement (Acute) Hx of right cataract extraction (Acute) Family History Family History Father Afib Mother Breast cancer Sister Heart valve disease Osteoarthritis Social History Social History Substance History: No History of Abuse Second Hand Smoke Exposure: No Smoking Status: Former smoker How Often Do You Have a Drink Containing Alcohol: 2 to 3 times a week Recent Travel in [facility] within the Last 8 Weeks: No Recent Out of Country Travel within the Last 8 Weeks: No Medications and Allergies Allergies Allergy/AdvReac Type Severity Reaction Status Date / Time avocado Allergy Severe VOMITING Verified 01/01/19 06:00 cat dander Allergy Severe RASH, Verified 01/01/19 06:00 ASTHMA SYMPTOMS diphenhydramine AdvReac Tachycardia Verified 01/01/19 06:00 [From Benadryl] promethazine [From Phenergan] AdvReac Restlessnes Verified 01/01/19 06:00 s antihistamines AdvReac Mild Tachycardia Uncoded 01/01/19 06:00 Home Medications Medication Instructions Recorded Confirmed Type aspirin [Aspirin Low Dose] 81 mg PO DAILY 12/21/18 01/01/19 History docusate sodium 100 mg PO DAILY 12/21/18 01/01/19 History meloxicam [Mobic] 15 mg PO DAILY 12/21/18 01/01/19 History pramipexole [Mirapex] 1 mg PO QPM 12/21/18 01/01/19 History tramadol 50 mg PO BID 12/21/18 01/01/19 History Active Medications: Active Medications Acetaminophen (Tylenol) 650 mg PO Q6H PRN PRN Reason: Pain Less Than 3 On Scale Hydrocodone Bitart/Acetaminophen ([place] 7.5/325) 1 tab PO Q4H PRN PRN Reason: PAIN SCALE 4 TO 6 MODERATE Hydrocodone Bitart/Acetaminophen ([place] 7.5/325) 2 tab PO Q6H PRN PRN Reason: PAIN SCALE 7 TO 10 SEVERE Al Hydrox/Mg Hydrox/Simethicone (Mag-Al Plus Susp Liq) 30 ml PO Q6H PRN PRN Reason: INDIGESTION Al Hydroxide/Mg Hydroxide (Milk Of Magnesia Liq) 30 ml PO BID PRN PRN Reason: Mild Constipation Aspirin (Aspirin Chew) 81 mg PO BID [facility] Last Admin: 01/01/19 12:45 Dose: Not Given Bisacodyl (Dulcolax Supp) 10 mg RECTAL DAILY PRN PRN Reason: SEVERE CONSITIPATION Chlorhexidine Gluconate (Hibiclens 4% Topical) 1 applicatio TOPICAL ONCE [facility] Stop: 01/05/19 06:14 Last Admin: 01/01/19 06:14 Dose: 1 applicatio Sodium Chloride 40 ml/ (Bupivacaine Liposome 20 ml) 0 ml P-ARTICULR UNSCH X1 [facility] Stop: 01/01/19 15:00 Last Admin: 01/01/19 07:35 Dose: 60 bag Docusate Sodium (Colace) 100 mg PO DAILY [facility] Last Admin: 01/01/19 10:08 Dose: Not Given Tranexamic Acid 690 mg/ Sodium (Chloride) 106.9 mls @ 200 mls/hr IV.SIG ONCE [facility] Stop: 01/01/19 15:00 Last Infusion: 01/01/19 10:35 Dose: Infused Lactated Ringer's (Lr 1000 Ml Inj) 1,000 mls @ 30 mls/hr IV.SIG .Q24H [facility] Stop: 01/02/19 06:14 Last Admin: 01/01/19 06:14 Dose: 30 mls/hr Sodium Chloride (Ns Inj) 500 mls @ 30 mls/hr IV.SIG .Q10H [facility] Last Admin: 01/01/19 09:15 Dose: Not Given Cefazolin Sodium/Dextrose (Ancef 2 Gm Premix Inj) 2 gm in 50 mls @ 100 mls/hr IV.SIG HACK SAW OPERATOR [facility] Stop: 01/05/19 06:59 Last Infusion: 01/01/19 07:36 Dose: Infused Cefazolin Sodium 1,000 mg/ (Sodium Chloride) 100 mls @ 200 mls/hr IV.SIG Q6H [facility] Stop: 01/02/19 01:29 Last Infusion: 01/01/19 14:00 Dose: Infused Lactated Ringer's (Lr 1000 Ml Inj) 1,000 mls @ 80 mls/hr IV.CONT .[id number] [facility] Last Admin: 01/01/19 10:07 Dose: Not Given Ketorolac Tromethamine (Toradol Inj) 15 mg IV.PUSH Q6H [facility] Stop: 01/03/19 04:01 Last Admin: 01/01/19 10:13 Dose: 15 mg Lactulose (Lactulose Liq) 30 ml PO DAILY PRN PRN Reason: SEVERE CONSITIPATION Miscellaneous Information (Misc Nursing Information) 0 each OTHER UNSCH PRN PRN Reason: SEE LABEL COMMENTS Stop: 01/02/19 09:20 Morphine Sulfate (Morphine Inj) 2 mg IV.PUSH Q3H PRN PRN Reason: BREAKTHROUGH PAIN Ondansetron HCl (Zofran Odt) 4 mg PO Q6H PRN PRN Reason: NAUSEA OR VOMITING Pramipexole Dihydrochloride (Mirapex) 1 mg PO QPM [facility] Sennosides (Senokot) 17.2 mg PO BID PRN PRN Reason: Moderate Constipation Sodium Chloride (Ns Flush) 2 ml IV.FLUSH BID [facility] Last Admin: 01/01/19 10:09 Dose: 2 ml Sodium Chloride (Ns Flush) 2 ml IV.FLUSH PRN PRN PRN Reason: FLUSH AFTER USING IV ACCESS Zolpidem Tartrate (Ambien) 5 mg PO HS PRN PRN Reason: INSOMNIA Physical Exam Vital signs: Vital Signs 01/01/19 06:04 01/01/19 09:21 01/01/19 09:30 Temperature 97.7 F 96.4 F L Pulse Rate 68 66 69 Respiratory Rate 16 14 21 Blood Pressure 124/71 127/66 107/69 Pulse Oximetry 97 99 92 L 01/01/19 09:45 01/01/19 10:00 01/01/19 11:00 Temperature Pulse Rate 66 67 68 Respiratory Rate 13 11 L 10 L Blood Pressure 111/57 L 122/59 L 112/65 Pulse Oximetry 96 99 99 01/01/19 12:00 01/01/19 13:00 01/01/19 14:00 Temperature Pulse Rate 66 91 H 80 Respiratory Rate 12 23 12 Blood Pressure 119/63 112/66 111/56 L Pulse Oximetry 100 98 98 Intake & Output 12/31/18 01/01/19 01/01/19 18:59 06:59 18:59 Intake Total 2706.8 / 2706.8 Output Total 450 / 450 Balance 2256.8 / 2256.8 Weight 69.1 kg Intake: IV 363.8 / 363.8 Cyklokapron Inj 690 MG In NS 213.8 / 213.8 Inj 100 ML @ 200 mls/hr IV.SIG ONCE [facility] Rx#:[id number] Ancef 2 GM Premix Inj 2 gm In 50 / 50 50 ml @ 100 mls/hr IV.SIG HACK SAW OPERATOR [facility] Rx#:[id number] Ancef Inj 1,000 MG In NS Inj 100 / 100 100 ML @ 200 mls/hr IV.SIG Q6H [facility] Rx#:[id number] Anesthesia Amount 2343 / 2343 Output: Urine 250 / 250 Estimated Blood Loss 200 / 200 Other: # Incontinent Voids 1 Weight On Admission 69.1 kg Narrative: GENERAL: well developed, well nourished, pleasant male, lying in bed, in no acute distress SKIN: Warm and dry. HEAD: Atraumatic. Normocephalic. NECK: Trachea midline. No JVD. CARDIOVASCULAR: Regular rate and rhythm. RESPIRATORY: No accessory muscle use. Clear to auscultation. Breath sounds equal bilaterally. GASTROINTESTINAL: Abdomen flat, soft, non-tender, nondistended. Hepatic and splenic margins not palpable. MUSCULOSKELETAL: Extremities without clubbing, cyanosis. Left hip incision dressed clean dry and intact, no drainage noted. Left LE CKS in place NEUROLOGICAL: Awake and alert and oriented x 4. No obvious cranial nerve deficits. Motor grossly within normal limits. Five out of 5 muscle strength in the arms and legs except left LE with limited ROM. Normal speech. PSYCHIATRIC: Appropriate mood and affect; insight and judgment normal. Results Imaging Impressions Hip X-Ray 01/01/19 06:36 CONCLUSION: The bilateral total hip prostheses appear well placed. ABG Impressions Hip X-Ray 01/01/19 06:36 CONCLUSION: The bilateral total hip prostheses appear well placed. Assessment and Plan (1) Status post total replacement of left hip: Code(s): Z96.642 - Presence of left artificial hip joint Status: Acute Plan This is a 68 years old male with past medical history of osteoarthritis, irregular heart rate, GERD, restless leg syndrome, hemorrhoids with long history of osteoarthritis of the left hip who failed conservative treatment and came in for elective surgery for left total hip arthroplasty with Dr. Red. Medicine team was consulted for medical management. Osteoarthritis of the Left Hip Status post left total hip arthroplasty with Dr. Red today 12/01/18 -Management with orthopedic team -PRN pain medication with bowel regimen -Physical therapy, weightbearing as tolerated -DVT prophylaxis with aspirin twice daily per OrthO recommendation -Continue antibiotic prophylaxis postop cefazolin -Dressing changes per Ortho orders Restless leg syndrome, chronic -Continue home medication pramipexole History of irregular heartbeat -No recent episodes, has been cleared by his cement truck driver -Heart rate controlled -No chest pain or shortness of breath DVT prophylaxis: Aspirin twice daily per OrthO Code Status: Full code Discussed Condition With: Patient and nurse Discharge Planning: agricultural services director to assist with this start discharge planning with home health care per OrthO recommendation
[2019-01-02] MEDS ORDERED: ceFAZolin Inj 1 GM in Sodium Chlor 0.9% Inj 100 ML IV.SIG SCH (01:00)
[2019-01-02] MEDS: Ketorolac Inj 30 MG/ML (IVP) Vial IV.PUSH SCH ×2 (04:10→11:14)
[2019-01-02 05:21] LABS: Hematocrit 39.1 % (39.0-51.0); Hemoglobin 13.4 gm/dL (13.0-17.0)
--- NOTE | 2019-01-02 06:01 | P.PNOP ---
Subjective Interval history: Postop day #1 He is doing well. He has minimal complaints. His major issue is with his restless legs syndrome. Physical therapy reports that the ambulation distance was 170 feet. Physical Exam Vital signs: Vital Signs 01/01/19 06:04 01/01/19 09:21 01/01/19 09:30 Temperature 97.7 F 96.4 F L Pulse Rate 68 66 69 Respiratory Rate 16 14 21 Blood Pressure 124/71 127/66 107/69 Pulse Oximetry 97 99 92 L 01/01/19 09:45 01/01/19 10:00 01/01/19 11:00 Temperature Pulse Rate 66 67 68 Respiratory Rate 13 11 L 10 L Blood Pressure 111/57 L 122/59 L 112/65 Pulse Oximetry 96 99 99 01/01/19 12:00 01/01/19 13:00 01/01/19 14:00 Temperature Pulse Rate 66 91 H 80 Respiratory Rate 12 23 12 Blood Pressure 119/63 112/66 111/56 L Pulse Oximetry 100 98 98 01/01/19 15:00 01/01/19 16:00 01/01/19 20:35 Temperature 97.2 F L 97 F L Pulse Rate 85 82 83 Respiratory Rate 15 15 18 Blood Pressure 136/69 117/65 153/68 H Pulse Oximetry 95 96 93 L 01/02/19 00:00 01/02/19 04:00 Temperature 98.1 F 97.7 F Pulse Rate 85 75 Respiratory Rate 18 18 Blood Pressure 107/53 L 127/69 Pulse Oximetry 93 L 95 Intake & Output 01/01/19 01/01/19 01/02/19 06:59 18:59 06:59 Intake Total 2706.8 / 2706.8 100 / 100 Output Total 725 / 725 Balance 1980.8 / 1980.8 100 / 100 Weight 69.1 kg 69.1 kg Intake: IV 363.8 / 363.8 100 / 100 Cyklokapron Inj 690 MG In NS 213.8 / 213.8 Inj 100 ML @ 200 mls/hr IV.SIG ONCE [facility] Rx#:[id number] Ancef 2 GM Premix Inj 2 gm In 50 / 50 50 ml @ 100 mls/hr IV.SIG PUTTY REMOVER [facility] Rx#:[id number] Ancef Inj 1 GM In NS Inj 100 ML 100 / 100 @ 200 mls/hr IV.SIG Q6H [facility] Rx #:[id number] Ancef Inj 1,000 MG In NS Inj 100 / 100 100 ML @ 200 mls/hr IV.SIG Q6H [facility] Rx#:[id number] Anesthesia Amount 2343 / 2343 Output: Urine 525 / 525 Estimated Blood Loss 200 / 200 Other: # Voids 1 # Incontinent Voids 1 Date of Last Bowel Movement 12/31/18 12/31/18 Weight On Admission 69.1 kg Narrative: He is resting comfortably, supine in bed. The dressing is dry and intact. His neurovascular status is intact. Results - Labs CBC & Chem 7: 01/02/19 04:48 Laboratory Results - last 24 hr 01/01/19 01/02/19 06:08 04:48 Hgb 13.4 Hct 39.1 Blood Type A Positive Blood Type Recheck Not needed Antibody Screen Negative - Imaging Impressions Hip X-Ray 01/01/19 06:36 CONCLUSION: The bilateral total hip prostheses appear well placed. - Procedures Left total hip arthroplasty using Arnie prosthesis on 01/01/2019 Assessment and Plan - Ortho Post Op Day # 1 - Problem List (1) Status post total replacement of left hip Code(s): Z96.642 - Presence of left artificial hip joint Status: Acute Plan: Continue postop care and PT - Assessment and Plan Condition: Good. Orthopedically stable. DVT prophylaxis: TEDs, aspirin, sequentials. Discharge plans: Home with home health care. An appointment was scheduled through the office. Prescriptions: [place] 7.5/325; Patient is having significant pain caused by a total hip arthroplasty which will last more than 3 days. Trial of Tylenol has not helped. I believe that it is medically necessary to treat patients pain because it is affecting patients ability to participate in postoperative rehabilitation and perform activities of daily living in a comfortable and efficient manner. I have checked the [facility] database prior to completing the prescription.
[2019-01-02] MEDS: Docusate Sodium 100 MG Capsule PO SCH (08:05)
[2019-01-02 10:04] VITALS: BP 142/65; PULSE 78; RESP 20; TEMP 97.6; O2SAT 94
--- NOTE | 2019-01-02 11:24 | P.PNIM ---
Subjective Interval history: Patient status post elective left total hip replacement surgery. Patient states he is doing well. He is anticipating going home today. He says that he did not sleep very good due to restless leg syndrome but does not have any complaints at this time. He says he feels further along following surgery at this time than he did 2 years ago when he had his right total hip replacement. He denies any fever or chills. Denies any chest pain or shortness of breath. Denies any nausea, vomiting or abdominal pain. He has not had a bowel movement but reports passing flatus. He reports urinating well. Physical Exam Vital signs: Vital Signs 01/01/19 12:00 01/01/19 13:00 01/01/19 14:00 Temperature Pulse Rate 66 91 H 80 Respiratory Rate 12 23 12 Blood Pressure 119/63 112/66 111/56 L Pulse Oximetry 100 98 98 01/01/19 15:00 01/01/19 16:00 01/01/19 20:35 Temperature 97.2 F L 97 F L Pulse Rate 85 82 83 Respiratory Rate 15 15 18 Blood Pressure 136/69 117/65 153/68 H Pulse Oximetry 95 96 93 L 01/02/19 00:00 01/02/19 04:00 01/02/19 08:00 Temperature 98.1 F 97.7 F 97.6 F Pulse Rate 85 75 78 Respiratory Rate 18 18 20 Blood Pressure 107/53 L 127/69 142/65 H Pulse Oximetry 93 L 95 94 L Intake & Output 01/01/19 01/02/19 01/02/19 18:59 06:59 18:59 Intake Total 2706.8 / 2706.8 500 / 500 Output Total 725 / 725 1125 / 1125 Balance 1980.8 / 8 -625 / -625 Weight 69.1 kg 64 kg Intake: IV 363.8 / 363.8 100 / 100 Cyklokapron Inj 690 MG In NS 213.8 / 213.8 Inj 100 ML @ 200 mls/hr IV.SIG ONCE JUVENAL Rx#:[id number] Ancef 2 GM Premix Inj 2 gm In 50 / 50 50 ml @ 100 mls/hr IV.SIG TAMPING MACHINE OPERATOR ROAD FORMS JUVENAL Rx#:[id number] Ancef Inj 1 GM In NS Inj 100 ML 100 / 100 @ 200 mls/hr IV.SIG Q6H JUVENAL Rx #:[id number] Ancef Inj 1,000 MG In NS Inj 100 / 100 100 ML @ 200 mls/hr IV.SIG Q6H JUVENAL Rx#:[id number] Oral 400 / 400 Anesthesia Amount 2343 / 2343 Output: Urine 525 / 525 1125 / 1125 Estimated Blood Loss 200 / 200 Other: # Voids 1 # Incontinent Voids 1 Date of Last Bowel Movement 12/31/18 12/31/18 12/31/18 # Bowel Movements 0 Narrative: GENERAL: WDWN male patient, INAD. Awake and alert. Witnessed ambulating around the room with use of walker. SKIN: Warm and dry. No obvious rash. HEENT: Atraumatic. Pupils equal and round. No scleral icterus noted. No nasal drainage. Moist mucous membranes. NECK: Trachea midline. CARDIOVASCULAR: Regular rate and rhythm. No murmur auscultated. RESPIRATORY: No accessory muscle use. Clear to auscultation. Breath sounds equal bilaterally. GASTROINTESTINAL: Abdomen flat, soft, non-tender, nondistended. +BS. MUSCULOSKELETAL: Extremities without clubbing, cyanosis. s/p left THR, postop dressing in place, C/D/I. NV intact LLE distally. NEUROLOGICAL: Awake and alert. No obvious cranial nerve deficits. Able to move all extremities spontaneously. Normal speech. PSYCHIATRIC: Appropriate mood and affect; insight and judgment normal. Results Labs CBC & Chem 7: 01/02/19 04:48 Procedures Procedures: Left total hip arthroplasty using Eugene prosthesis on 01/01/2019 Assessment and Plan (1) Status post total replacement of left hip: Code(s): Z96.642 - Presence of left artificial hip joint Status: Acute Plan 68 year old male with past medical history of osteoarthritis, irregular heart rate, GERD, restless leg syndrome, hemorrhoids with long history of osteoarthritis of the left hip who failed conservative treatment and underwent elective left total hip arthroplasty with Dr. Red. Medicine team was consulted for medical management. Osteoarthritis of the Left Hip, failed attempts at conservative treatment Status post left total hip arthroplasty with Dr. Red today 12/01/18 -Management per orthopedic team. Patient has been discharged to home with home health care. 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 Rice Progress Note: Quality VTE Deep Vein Thrombosis/Pulmonary Embolism Present on Admission: No
--- NOTE | 2019-01-02 12:44 | P.DS ---
Date of admission: 01/01/19 05:22 Primary care physician: Masood Juan MD Attending physician on discharge: Tristan Red Anticipated date of discharge: 01/02/19 Brief History from admission: This 68-year-old man has had long-standing arthritis in his left hip nonresponsive to conservative measures as detailed in the history and physical examination. He was admitted for elective total hip arthroplasty. Physical findings showed limited range of motion of the left hip with an antalgic gait and some crepitation on motion. X-rays showed severe osteoarthritis with loss of articular cartilage to [id number], subchondral cysts, subchondral sclerosis and large osteophytes in the lateral aspect of the femoral head consistent with femoral acetabular impingement. DS: Diagnosis - Discharge Diagnosis (1) Status post total replacement of left hip Status: Acute Diagnosis: Principal (2) Primary osteoarthritis of left hip Status: Chronic Diagnosis: Principal DS: Medications - Discharge Medications Prescriptions: hydrocodone-acetaminophen 1 tab PO Q4H PRN 7 Days #42 tab PRN Reason: Pain DS: Summary Hospital Course: The patient was admitted as noted above. The above noted operative procedure was carried out that day. Preoperatively prophylactic antibiotics were administered Ancef according to protocol. These were continued postoperatively. The patient also received tranexamic acid to help with hemostasis according to protocol. In the postanesthesia care unit mechanical methods of DVT prophylaxis in the form of CARLOS stockings and sequentials were initiated. Physical therapy was initiated on the day of surgery. On postoperative day #1 physical therapy continued. DVT prophylaxis with aspirin 81 mg was initiated at this time. The patient continued physical therapy throughout the hospitalization. The distance walked and range of motion improved throughout the hospitalization. The patient was discharged on postoperative day 1 with the disposition being to home with home health care. An appointment for follow-up was made prior to admission. - Time Spent with Patient Total time spent providing and/or coordinating discharge services: Less than 30 minutes - Quality: VTE Deep Vein Thrombosis/Pulmonary Embolism Present on Admission: No Exam Vital signs: Vital Signs 01/01/19 13:00 01/01/19 14:00 01/01/19 15:00 Temperature Pulse Rate 91 H 80 85 Respiratory Rate 23 12 15 Blood Pressure 112/66 111/56 L 136/69 Pulse Oximetry 98 98 95 01/01/19 16:00 01/01/19 20:35 01/02/19 00:00 Temperature 97.2 F L 97 F L 98.1 F Pulse Rate 82 83 85 Respiratory Rate 15 18 18 Blood Pressure 117/65 153/68 H 107/53 L Pulse Oximetry 96 93 L 93 L 01/02/19 04:00 01/02/19 08:00 Temperature 97.7 F 97.6 F Pulse Rate 75 78 Respiratory Rate 18 20 Blood Pressure 127/69 142/65 H Pulse Oximetry 95 94 L Intake & Output 01/01/19 01/02/19 01/02/19 18:59 06:59 18:59 Intake Total 2706.8 / 2706.8 500 / 500 Output Total 725 / 725 1125 / 1125 Balance 1980.8 / 1980.8 -625 / -625 Weight 69.1 kg 64 kg Intake: IV 363.8 / 363.8 100 / 100 Cyklokapron Inj 690 MG In NS 213.8 / 213.8 Inj 100 ML @ 200 mls/hr IV.SIG ONCE JUVENAL Rx#:[id number] Ancef 2 GM Premix Inj 2 gm In 50 / 50 50 ml @ 100 mls/hr IV.SIG EXPEDITIONARY FORCE COMBAT SKILLS JUVENAL Rx#:[id number] Ancef Inj 1 GM In NS Inj 100 ML 100 / 100 @ 200 mls/hr IV.SIG Q6H JUVENAL Rx #:[id number] Ancef Inj 1,000 MG In NS Inj 100 / 100 100 ML @ 200 mls/hr IV.SIG Q6H JUVENAL Rx#:[id number] Oral 400 / 400 Anesthesia Amount 2343 / 2343 Output: Urine 525 / 525 1125 / 1125 Estimated Blood Loss 200 / 200 Other: # Voids 1 # Incontinent Voids 1 Date of Last Bowel Movement 12/31/18 12/31/18 12/31/18 # Bowel Movements 0 Narrative: He is resting comfortably, supine in bed. The dressing is dry and intact. His neurovascular status is intact. Results Procedures completed during hospitalization: Left total hip arthroplasty using Manquin prosthesis on 01/01/2019 Labs on day of discharge: Labs from last 24 hours 01/02/19 04:48 Hgb 13.4 Hct 39.1 - Impressions ITS Impressions Hip X-Ray 01/01/19 06:36 CONCLUSION: The bilateral total hip prostheses appear well placed. Discharge Plan - Discharge Disposition Patient Disposition: 06 Disch W/Home Health Service - Discharge Condition Condition: Stable - Discharge Order Discharge Orders: Discharge Order (Routine); Ordered 01/02/19 Ordered By: Tristan Red - Discharge Details Anticipated Discharge Date: 01/02/19 - Physicians Team Primary Care Provider: Masood Juan Attending Provider: Tristan Red Other Providers: Kati Rice MD ; [facility] - Rxs /Orders / Referrals /Forms Prescriptions: New aspirin 81 mg Tablet,Chewable 81 mg PO BID RF: 0 hydrocodone-acetaminophen 7.5-325 mg Tablet 1 tab PO Q4H PRN (Reason: Pain) 7 Days Qty: 42 RF: 0 Continue docusate sodium 100 mg Capsule 100 mg PO DAILY meloxicam [Mobic] 15 mg Tablet 15 mg PO DAILY pramipexole [Mirapex] 1 mg Tablet 1 mg PO QPM tramadol 50 mg Tablet 50 mg PO BID Discontinued aspirin [Aspirin Low Dose] 81 mg Tablet,Delayed Release (Dr/Ec) 81 mg PO DAILY Referrals: Tristan Red MD [Physician] - See Instructions ( Your appointment has been scheduled for 01/15/19 at 2:00 pm. If you cannot make this appointment, please call the office to reschedule ) Masood Juan MD [Primary Care Provider] - See Instructions ( Your appointment has been scheduled for 01/15/19 at 10:00 am. If you cannot make this appointment, please call the office to reschedule ) - Discharge Instructions Patient Printed Instructions: Hydrocodone/Acetaminophen (By mouth), Aspirin ( By mouth), How to Use an Incentive Spirometer (DC), How to Choose and Use a Walker (GEN), Precautions after Total Joint Replacement Surgery (ED), CARLOS Hose ( DC), Total Hip Replacement (DC) Additional Instructions: Discharge Care Plan Goals for Total Hip Replacement You had a hip replacement surgery. This means your natural hip was replaced with an artificial joint (prosthesis). You may be recovering at home or in a rehabilitation facility. Either way, you must take care of your new hip. Here are some goals to help you heal well. Directions to Meet your Goals: 1. Activity & Exercises: * Take pain medicine as directed by your doctor. * Dont drive until your doctor says its OK. And never drive while taking opioid pain medicine. * Wear the support stockings you were given in the hospital as directed by your surgeon. * Dont sit for more than 30 to 45 minutes at one time. * Dont lean forward while sitting. * Dont cross your legs. * Keep your feet flat on the floor. Dont turn your foot or leg inward. This stresses your hip joint. * Use an elevated toilet seat for 6 weeks after surgery. * Nap if you are tired, but dont stay in bed all day. * Sit on a firm cushion when you ride in a car and avoid sitting too low. Try not to bend your hip too much when getting in and out of the car. 2. Prevent Falls/Injury: * Follow your doctors orders regarding how much weight to put on the affected leg. * Dont bend at the hip when you bend over. Don't bend at the waist to put on socks and shoes. And avoid picking up items from the floor. * Use a cane, crutches, a walker, or handrails until your balance, flexibility, and strength improve. And remember to ask for help from others when you need it. * Free up your hands so that you can use them to keep balance. Use a lester pack , apron, or pockets to carry things. * Arrange your household to keep the items you need handy. Keep everything else out of the way. * Remove items that may cause you to fall, such as throw rugs and electrical cords. * Use nonslip bath mats, grab bars, an elevated toilet seat, and a shower chair in your bathroom * Sit on a shower stool or chair when you shower to keep from falling. 3. Precautions: * Prevent infection. Any infection will need to be treated immediately. Call your doctor right away if you think you might have an infection. * Tell your dentist that you have an artificial joint and take antibiotics as prescribed before any dental work. * Tell all your healthcare providers about your artificial joint before any medical procedure. * Maintain a healthy weight. Get help to lose any extra pounds. Added body weight puts stress on the joints. 4. Incision Care: * Prevent infection by washing your hands often. If an infection occurs, it will need to be treated right away. * Call your doctor right away if you think you may have an infection. Symptoms include a fever or an incision that leaks white, green, or yellow fluid. * Don't soak your incision in water until your doctor says its OK. This means no hot tubs, bathtubs, or swimming pools. * Follow your doctor's instructions for changing the dressing. * Dont rub the incision, or apply creams or lotions to it. * If you notice any redness or drainage around the bandage site, contact your surgeon's office immediately. 5. Follow-Up: Do Not miss your follow-up appointment. Keep up with all your appointments and yearly check ups When to call your doctor: Call your doctor right away if you have: Hip pain gets worse Pain or swelling in your calf or leg not related to your incision Tenderness or redness in your calf Fever of 100.4F (38C) or higher, or as directed by your healthcare provider Shaking chills Swelling or redness at the incision site gets worse Fluid draining from the incision Call 911: Call 911 right away if you have: Chest pain Shortness of breath Any pain or tenderness in your calf
== END 2019-01-02 14:16 | disposition home health service (06) | DRG 470 ==
LOC: HSDI 05:22 → N06 16:20
PROVIDERS: ADMIT Orthopaedic Surgery; ATTEND Orthopaedic Surgery
CPT/HCPCS: 73502; 85014; 85018; 86850; 86900; 86901; 94150; 97110; 97116; 97150; 97162; 97166; C1776; C9290; J0131; J0690; J1100; J1580; J1885; J2175; J2250; J2270; J2370; J2704; J2765; J3010; J7120; L1830